=== PATIENT | male | born 1995 | race Caucasian/White ===

== ENCOUNTER 2020-05-03 01:38 | Emergency (ER) | payer BC, SELFPAY ==
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
[2020-05-03 01:43] VITALS: BP 137/77; PULSE 78; RESP 19; TEMP 36.6; O2SAT 100
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
[2020-05-03 03:29] VITALS: BP 122/78; PULSE 85; RESP 16; TEMP 36.7; O2SAT 100
== END 2020-05-03 03:30 | disposition home or self-care (01) ==
PROVIDERS: Emergency Provider General Practice
DX: S00.83XA Contusion of other part of head, initial encounter (principal); Y04.0XXA Assault by unarmed brawl or fight, initial encounter
CPT/HCPCS: 70486; 99284

== ENCOUNTER 2020-12-24 13:27 | Emergency (ER) | payer OTHER, BC, SELFPAY ==
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
--- NOTE | ~2020-12-24 | XR_ITS ---
EXAMINATION: XR hand LT min 3V INDICATION: Right hand pain, initial encounter TECHNIQUE: Three views of the right hand are obtained. COMPARISON: None FINDINGS: There is a 1 mm triangular radiopaque foreign body projecting in the soft tissues adjacent to the second metacarpophalangeal joint. There is surrounding soft tissue swelling. There is no fract ure, dislocation, or subluxation. The joint spaces are normal. IMPRESSION: 1. Tiny triangular radiopaque foreign body projecting in the soft tissues adjacent to the second meta carpophalangeal joint. No fracture. Reviewed, dictated and finalized at location A. IMPRESSION: 1. Tiny triangular radiopaque foreign body projecting in the soft tissues adjac ent to the second metacarpophalangeal joint. No fracture.
--- NOTE | ~2020-12-24 | XR_ITS ---
EXAMINATION: XR forearm LT 2V INDICATION: Left forearm pain TECHNIQUE: Two views of the left forearm are obtained on three radiographs COMPARISON: None available FINDINGS: There is a 4.8 x 2.0 cm triangular radiopaque foreign body in the soft tissues overlying th e proximal/mid ulnar shaft. Surrounding soft tissue swelling is present. There is no fracture, disloc ation, or subluxation. Alignment at the wrist and elbow is normal. IMPRESSION: 1. Radiopaque foreign body in the medial subcutaneous tissues adjacent to the proximal/mid ulnar shaf t. Reviewed, dictated and finalized at location A. IMPRESSION: 1. Radiopaque foreign body in the medial subcutaneous tissues adjacent to the p roximal/mid ulnar shaft.
[2020-12-24 13:28] VITALS: BP 136/57; PULSE 67; RESP 14; TEMP 37.1; O2SAT 100
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
== END 2020-12-24 15:32 | disposition home or self-care (01) ==
PROVIDERS: Emergency Provider Emergency Medicine
DX: S60.512A Abrasion of left hand, initial encounter (principal); S50.812A Abrasion of left forearm, initial encounter; S16.1XXA Strain of muscle, fascia and tendon at neck level, initial encounter; V89.2XXA Person injured in unspecified motor-vehicle accident, traffic, initial encounter
CPT/HCPCS: 72125; 73090; 73130; 99284

== ENCOUNTER 2020-12-25 16:51 | Emergency (ER) | payer OTHER, BC, SELFPAY ==
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
[2020-12-25 16:58] VITALS: BP 134/65; PULSE 76; RESP 18; TEMP 36.9; O2SAT 99
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
[2020-12-25 18:00] VITALS: BP 128/88; PULSE 70; RESP 20; O2SAT 100
== END 2020-12-25 18:04 | disposition home or self-care (01) ==
PROVIDERS: Emergency Provider Emergency Medicine
DX: S60.011A Contusion of right thumb without damage to nail, initial encounter (principal); V89.2XXA Person injured in unspecified motor-vehicle accident, traffic, initial encounter
CPT/HCPCS: 73130; 99283

== ENCOUNTER 2021-02-23 17:06 | Emergency (ER) | payer OTHER, BC, SELFPAY ==
[2021-02-23 17:17] VITALS: BP 138/62; PULSE 61; RESP 18; TEMP 36.8; O2SAT 100
[2021-02-23 17:46] VITALS: BP 138/62; PULSE 61; RESP 18; O2SAT 100
--- NOTE | 2021-02-23 18:26 | ED.DENTAL ---
HPI - Dental/Oral General Chief complaint: Dental/Oral Stated complaint: Toothache Time Seen by Provider: 02/23/21 17:50 Source: patient Mode of arrival: ambulatory Limitations: no limitations History of Present Illness HPI Narrative: This is 25 year old male who presents for evaluation of right upper tooth pain with cheek swelling. He reports pain for 2- 3 days to his took. He also reports left cheek swelling that started today. He denies fever, chills, nausea or vomiting. He has not taken anything for pain. He denies difficulty breathing. Related Data Allergies Allergy/AdvReac Type Severity Reaction Status Date / Time No Known Allergies Allergy Verified 12/25/20 17:07 Review of Systems Review of Systems: All systems reviewed & are unremarkable except as noted in HPI and below PMFSH Past Medical History Medical History Patient denies medical problems Surgical History Surgical History History of facial surgery Social History Social History Gender identity (if verbalized by the patient): Male Exam Const: General: no acute distress and alert Orientation/consciousness: patient oriented x3 HENMT: Head: normocephalic and atraumatic Mouth: Yes lip normal, Yes tongue normal, Yes moist mucous membranes and No trismus Teeth and gingiva: abnormal tooth and associated gingiva (# 14 with tenderness with gum and cheek swelling) Eyes: Pupils: Equal, round and reactive pupils present EOM: EOMs intact bilaterally Resp: Effort & Inspection: normal respiratory effort Auscultation: clear to auscultation bilaterally Cardio: Rate: regular rate Rhythm: regular rhythm Heart sounds: no murmurs Neuro: General: patient oriented x3, moves all extremities and CN's II-XI intact bilaterally Psych: Mental Status: mental status grossly normal Affect: normal affect Course Consultations Consultation #1: I discussed with patient he will be started on antibiotics for this dental abscess. I was able to aspirate purulent fluid. I discussed follow up with dentist or oral surgeon Date: 02/23/21 Time: 19:43 Vital Signs Vital signs: Vital Signs Temperature 98.3 F 02/23/21 17:17 Pulse Rate 61 02/23/21 17:17 Respiratory Rate 18 02/23/21 17:17 Blood Pressure 138/62 02/23/21 17:17 Pulse Oximetry 100 02/23/21 17:17 Temperature 98.3 F 02/23/21 17:17 Pulse Rate 78 02/23/21 20:29 Respiratory Rate 18 02/23/21 20:29 Blood Pressure 142/78 H 02/23/21 20:29 Pulse Oximetry 99 02/23/21 20:29 Procedures Abscess I/D oral: Date of Incision: 02/23/21 Time of Incision: 19:42 Side (if applicable): left Local Anesthetic: lidocaine 1% Amount of anesthesia used (mL): 1 Technique: needle aspiration Amount of fluid expressed (mL): 2 Packing used?: none I&D Results: Pus Abcess I&D Additional Comments: left upper dental abscess - I used 18 gauge needle to perform needle aspiration at gum at #14 Discharge Plan Discharge Clinical Impression: Dental abscess Patient Disposition: Home, Self-Care Condition: Stable Instructions: Antibiotic Form, Dental Abscess (ED) Additional Instructions: Today you were evaluated for dental abscess. Please take anti biotics as prescribed. Apply warm compress to your face to help with swelling and pain. If you develop worsening swelling, difficulty breathing fever or vomiting you will need to go to ER. You will need to follow up with dentist or oral surgeon. Prescriptions: New amoxicillin-pot clavulanate [Augmentin] 875-125 mg tablet 1 tablet PO Q12H Qty: 20 RF: 0 tramadol 50 mg tablet 50 mg PO Q6H PRN (Reason: pain) Qty: 7 RF: 0 No Action cephalexin 500 mg capsule 500 mg PO Q12H 7 Days Qty: 10 RF: 0 Follow-up/Ref
[2021-02-23] MEDS: HYDROcodone/acetaminophen (*CRX) 5-325 MG TABLET 1 TAB PO (19:17)
[2021-02-23] MEDS: ONDANSETRON HCL ODT 4 MG TABLET PO (19:20)
[2021-02-23 20:29] VITALS: BP 142/78; PULSE 78; RESP 18; O2SAT 99
== END 2021-02-23 20:30 | disposition home or self-care (01) ==
PROVIDERS: Emergency Provider General Practice
DX: K04.7 Periapical abscess without sinus (principal)
CPT/HCPCS: 41800; 99283; A9270

== ENCOUNTER 2023-06-02 14:50 | Emergency (ER) | payer SELFPAY ==
[2023-06-02 14:51] VITALS: BP 144/91; PULSE 91; RESP 18; TEMP 36.3; O2SAT 100
--- NOTE | 2023-06-02 15:19 | ED.DENTAL ---
HPI - Dental/Oral General Chief complaint: Dental/Oral Stated complaint: dental pain/swelling Time Seen by Provider: 06/02/23 14:57 Source: patient Mode of arrival: ambulatory Limitations: no limitations History of Present Illness HPI Narrative: Richie is a 27-year-old male patient presenting to the ER today for a possible dental abscess to the left upper tooth. He reports that he has no sys get increasingly swollen and painful over the past 2-3 days. Does start to take some old amoxicillin left over that his sister had. States his amoxicillin 875. Reports that this is not seem to be helping. Denies any fever or chills. Related Data Allergies Allergy/AdvReac Type Severity Reaction Status Date / Time No Known Allergies Allergy Verified 12/25/20 17:07 Review of Systems Review of Systems: Pertinent positives per HPI. Patient denies any fever, chills, rash, headache, visual changes, dizziness, cough, runny nose, sore throat, shortness of breath, chest pain, palpitations, nausea, vomiting, diarrhea, constipation, abdominal pain, or any urinary issues. PMFSH Past Medical History Medical History Patient denies medical problems Surgical History Surgical History History of facial surgery Social History Social History Gender identity (if verbalized by the patient): Male Comments At the time of my signature, I reviewed and agree with the nursing past medical, surgical, social, and family history. There is no relevant family history pertinent to the patient complaint. Exam Narrative: General: Well-developed, well nourished, in no apparent distress Head: Normocephalic, atraumatic Eyes: Pupils equally round and reactive to light bilaterally, EOM intact, sclera and conjunctive clear, no discharge, lids normal Ears: TMs intact and clear, ear canals clear, no drainage, grossly hearing normal. Nose: Nares patent, no discharge, no inflammation, no sinus tenderness. Mouth: Oropharynx without lesions or masses, poor dentition, MMM. Dental abscess to left upper canine tooth with fluctuance of abscess. Neck: Supple, trachea midline, no enlargement of anterior or posterior cervical nodes, no thyroid masses or goiter palpable. Cardio: Regular rate and rhythm, s1 and s2 normal, no murmur appreciated. Resp: Clear to auscultation bilaterally anteriorly and posteriorly, no rhonchi, rales, wheezing or rubs Course Course Emergency Course: Portions of this record may have been created with voice recognition software. Vital Signs Vital signs: Vital Signs Temperature 36.3 C L 06/02/23 14:51 Pulse Rate 91 06/02/23 14:51 Respiratory Rate 18 06/02/23 14:51 Blood Pressure 144/91 H 06/02/23 14:51 Pulse Oximetry 100 06/02/23 14:51 Oxygen Delivery Room Air 06/02/23 14:51 Temperature 36.3 C L 06/02/23 14:51 Pulse Rate 91 06/02/23 14:51 Respiratory Rate 18 06/02/23 14:51 Blood Pressure 144/91 H 06/02/23 14:51 Pulse Oximetry 100 06/02/23 14:51 Oxygen Delivery Room Air 06/02/23 14:51 Vital signs reviewed Procedures Abscess I/D oral: Date of Incision: 06/02/23 Side (if applicable): left Local Anesthetic: lidocaine 1% and with epi Amount of anesthesia used (mL): 1 Technique: needle aspiration Amount of fluid expressed (mL): 3 Irrigation: No Packing used?: none I&D Results: Pus and Blood Complications: other (None) Abcess I&D Additional Comments: Verbal consent obtained for needle aspiration of dental abscess. Risk and benefits explained and patient voiced understanding. A 25 gauge needle was then used to instill (1) ml of lidocaine with epi into the abscess. Patient tolerated well and anesthesia was appropriate. An 18 gauge needle was then u
[2023-06-02] MEDS: cefTRIAXone 1 GM, LIDOCAINE HCL 1% LOCAL INJ 2.1 ML IM (15:46)
[2023-06-02] MEDS: WATER, STERILE FOR INJECTION 10 ML VIAL XX (15:47)
[2023-06-02] MEDS: LIDO 1%/EPINEPHRINE 1:100,000 20 ML VIAL 10 ML INFILTRATE (15:47)
[2023-06-02] MEDS: HYDROcodone/acetaminophen (*CRX) 7.5-325 MG TABLET 1 TAB PO (15:48)
== END 2023-06-02 15:53 | disposition home or self-care (01) ==
PROVIDERS: Emergency Provider Nurse Practitioner Family
DX: K04.7 Periapical abscess without sinus (principal)
CPT/HCPCS: 41800; 96372; 99283; A9270; J0696

== ENCOUNTER 2023-07-31 11:20 | Emergency (ER) | payer MEDICAID, SELFPAY ==
--- NOTE | ~2023-07-31 | CT_ITS ---
EXAMINATION: CT abdomen pelvis w con DATE: 07/31/2023 14:01 INDICATION: Gross hematuria. Right lower quadrant abdominal pain and suprapubic pain. TECHNIQUE: Computed tomography (CT) of the abdomen and pelvis was performed with 100 mL Omnipaque-350 intravenous contrast. Automated exposure control and iterative reconstruction technique were employe d. The dose-length product was 708.48 mGy-cm. COMPARISON: None FINDINGS: There is some curvilinear atelectasis/scarring at the periphery of a focal region of hyperlucency lennox g disease at the posterior basilar right lower lobe which could be due to bronchial atresia, sequela of prior infection or emphysema. Heart size is normal. No pericardial or pleural effusion. Liver, gal lbladder, spleen, pancreas, bilateral adrenal glands and kidneys are normal. Bowels are normal. There few small calcified appendicoliths along the normal appendix with no periappendiceal inflammatory st randing to suggest acute appendicitis. Bilateral ureters are normal with no urolithiasis. Bladder is normal. No free intraperitoneal gas or fluid. No pathologically enlarged abdominal or pelvic lymphade nopathy. Mild to moderate lower thoracic spondylosis with minimal to mild anterior wedging and multip le small Schmorl's nodes at multiple lower thoracic vertebral bodies. IMPRESSION: 1. No evident urolithiasis or acute intra-abdominal/pelvic process. 2. Small region of lucent lung disease at the posterior basilar right lower lobe most likely related to either developmental bronchial atresia or more recent sequela of prior infection. Reviewed, dictated and finalized at location A. NTORY CHECKER IMPRESSION: 1. No evident urolithiasis or acute intra-abdominal/pelvic process. 2. Small region of lucent lung disease at the posterior basilar right lower lob e most likely related to either developmental bronchial atresia or more recent sequela of prior infection.
[2023-07-31 11:21] VITALS: BP 144/80; PULSE 95; RESP 16; TEMP 36.4; O2SAT 98
[2023-07-31 11:56] LABS: Appearance Urine Turbid (Clear); Color Urine Red (Yellow)
[2023-07-31 11:57] LABS: Add Urine Microscopic? YES; RBC Urine >100 /hpf (0-2); WBC Urine >100 /hpf
[2023-07-31 11:58] LABS: Bacteria Urine 2+ /hpf
[2023-07-31 12:10] LABS: Basophils Percent Auto 0.5 % (0.2-1.2); Eosinophils Absolute Auto 0.2 K/mm3 (0-0.3); Eosinophils Percent Auto 2.5 % (0-4.4); Hematocrit 47.5 % (42.0-52.0); Hemoglobin 14.8 g/dL (14.0-18.0); Immature Granulocyte Absolute 0.05 K/mm3 (0.00-0.031); Immature Granulocyte Percent A 0.6 % (0-0.5); Lymphocytes Absolute Auto 2.52 K/mm3 (0.9-3.2); Lymphocytes Percent Auto 28.7 % (18.3-44.2); Mean Corpuscular HGB Conc 31.2 g/dl (32-36); Mean Corpuscular Volume 96.3 fl (80-100); Mean Platelet Volume 8.7 fl (7.4-10.4); Monocytes Absolute Auto 0.9 K/mm3 (0.1-0.6); Monocytes Percent Auto 10.6 % (2.6-8.5); Neutrophils Percent Auto 57.1 % (45.5-73.1); Platelet Count Result 292 k/mm3 (150-375); Red Blood Count 4.93 M/mm3 (4.6-6.20); Red Cell Distribution Width 13.1 % (11.5-14.5); White Blood Count 8.8 K/mm3 (4.5-10.0)
[2023-07-31 12:22] LABS: Anion Gap 6 mmol/L (8-16); Blood Urea Nitrogen 22 mg/dL (9-20); Calcium 9.4 mg/dL (8.4-10.2); Carbon Dioxide 28 mmol/L (22-30); Chloride 103 mmol/L (98-107); Estimated CRCL calculation 151 ml/min; Estimated Glomerular Filt Rate > 60; Glucose 97 mg/dL (65-110); Potassium 4.5 mmol/L (3.4-5.0); Sodium 137 mmol/L (137-145)
--- NOTE | 2023-07-31 13:35 | ED.MALEGU ---
HPI - Male Genitourinary General Chief complaint: Urogenital-Male Stated complaint: peeing blood Time Seen by Provider: 07/31/23 12:04 History of Present Illness HPI Narrative: Patient is a 28-year-old male presenting with hematuria. Patient states that he woke up this morning and had gross hematuria. States that there were a lot of clots. Complains of a bloating painful sensation in his right lower quadrant and suprapubic area. No nausea or vomiting, diarrhea, penile discharge, testicular pain. No fevers or chills, rashes. Related Data Allergies Allergy/AdvReac Type Severity Reaction Status Date / Time No Known Allergies Allergy Verified 07/31/23 11:23 Review of Systems Review of Systems: All systems reviewed & are unremarkable except as noted in HPI and below PMFSH Past Medical History Medical History Patient denies medical problems Surgical History Surgical History History of facial surgery Social History Social History Gender identity (if verbalized by the patient): Male Exam Narrative: GENERAL: Well-appearing, in no acute distress, pleasant cooperative HEAD: Normocephalic, atraumatic. EYES: PERRLA and EOMI. ENT: Mucous membranes moist. NECK: Supple. CHEST: No respiratory distress. HEART: Regular rate and rhythm ABDOMEN: Soft, +suprapubic and RLQ tenderness w/o guarding or rebound; no CVA tenderness EXTREMITIES: Normal range of motion. No edema. SKIN: Warm, dry, no rash. NEURO: No focal deficits. Alert and oriented x3. PSYCH: Normal mood and affect. Course Vital Signs Vital signs: Vital Signs Temperature 97.6 F 07/31/23 11:21 Pulse Rate 95 07/31/23 11:21 Respiratory Rate 16 07/31/23 11:21 Blood Pressure 144/80 H 07/31/23 11:21 Pulse Oximetry 98 07/31/23 11:21 Oxygen Delivery Room Air 07/31/23 11:21 Temperature 98.4 F 07/31/23 16:02 Pulse Rate 73 07/31/23 16:02 Respiratory Rate 18 07/31/23 16:02 Blood Pressure 148/90 H 07/31/23 16:02 Pulse Oximetry 100 07/31/23 16:02 Oxygen Delivery Room Air 07/31/23 11:21 MDM - Male Genitourinary MDM Narrative Medical decision making narrative: 28-year-old male presenting with gross hematuria and lower abdominal pain. Vitals stable. Exam remarkable for the above. Urine is grossly bloody. Greater than 100 rbc's and wbc's with 2+ bacteria. Due to the turbidity and color, many aspects of the UA were unable to be performed. CT abdomen pelvis without acute abnormalities. Repeat UA with greater than 100 rbc's but no other acute abnormalities. Negative for chlamydia and gonorrhea. Patient is safe for outpatient management. Advised close Urology follow-up. Appropriate return precautions given. Patient is agreeable with this plan. Discharged in stable condition. Differential Diagnosis Differential diagnosis: Likely urinary tract infection, urethritis, prostatitis and other (Hematuria) Medical Records Attestation: I reviewed the patient's medical records. Lab Data Attestation: I reviewed the patient's lab results. 07/31/23 11:59 07/31/23 11:59 Labs: Lab Results 07/31/23 07/31/23 07/31/23 Range/Units 11:46 11:59 15:51 WBC 8.8 (4.5-10.0) K/mm3 RBC 4.93 (4.6-6.20) M/mm3 Hgb 14.8 (14.0-18.0) g/dL Hct 47.5 (42.0-52.0) % MCV 96.3 (80-100) fl MCH 30.0 (26-34) pg MCHC 31.2 L (32-36) g/dl RDW 13.1 (11.5-14.5) % Plt Count 292 (150-375) k/mm3 MPV 8.7 (7.4-10.4) fl Immature Gran % (Auto) 0.6 H (0-0.5) % Neut % (Auto) 57.1 (45.5-73.1) % Lymph % (Auto) 28.7 (18.3-44.2) % [place] % (Auto) 10.6 H (2.6-8.5) % Eos % (Auto) 2.5 (0-4.4) % Baso % (Auto) 0.5 (0.2-1.2) % Lymph # (Auto) 2.52 (0.9-3.2) K/mm3 [place] # (Auto) 0.9 H (0
[2023-07-31] MEDS: MORPHINE SULFATE (*CRX) 4 MG/ML INJ IV PUSH (13:47)
[2023-07-31] MEDS: SODIUM CHLORIDE 0.9% IV 1,000 ML 999 ML IV CONT ×2 (13:47→14:49)
[2023-07-31 14:02] LABS: Lipase 83 U/L (23-300)
[2023-07-31 14:14] LABS: INR 0.8; Prothrombin Time 11.9 Seconds (11.1-14.7)
[2023-07-31 14:15] LABS: Partial Thromboplastin Time 29.5 SECONDS (22.3-36.8)
[2023-07-31 16:02] VITALS: BP 148/90; PULSE 73; RESP 18; TEMP 36.9; O2SAT 100
[2023-07-31 16:06] LABS: Bacteria Urine None Seen /hpf; Non Pathogenic Casts 0-2; RBC Urine >100 /hpf (0-2); Squamous Epithelial Cell Urine None seen /hpf (Few); WBC Urine 0-5 /hpf (0-3)
[2023-07-31 16:22] LABS: Appearance Urine Slightly Cloudy (Clear); Color Urine Amber (Yellow)
[2023-07-31 16:23] LABS: Protein Urine Negative (Negative); Specific Grav Ur 1.015 (1.001-1.035)
[2023-07-31 16:24] LABS: Blood Urine 3+ (Negative); Glucose Urine UA Negative (Negative); Ketones Urine Negative (Negative); Nitrate Urine Negative (Negative)
[2023-07-31 16:25] LABS: Bilirubin Urine Negative (Negative); Leukocyte Esterase Ur Negative LEU/UL (NEGATIVE); Urobilinogen Urine 0.2 mg/dL (<2.0)
[2023-07-31 16:26] LABS: Add Urine Microscopic? YES
[2023-07-31] MEDS: NICOTINE (*PBKC) 21 MG PATCH 1 PATCH TRANSDERM (16:42)
[2023-07-31 16:46] LABS: Chlamydia trachomatis NOT DETECTED (NOT DETECTE); Neisseria gonorrhoeae PCR NOT DETECTED (NOT DETECTE)
== END 2023-07-31 17:55 | disposition home or self-care (01) ==
PROVIDERS: Physician Assistant; Student in an Organized Health Care Education/Training Program; Emergency Provider Emergency Medicine
DX: R31.0 Gross hematuria (principal)
CPT/HCPCS: 36415; 74177; 80048; 81001; 83690; 85025; 85610; 85730; 87086; 87491; 87591; 96361; 96374; 99284; A9270; J2270; J7030; Q9967

== ENCOUNTER 2024-01-11 14:28 | Emergency (ER) | payer OTHER, SELFPAY ==
[2024-01-11 14:31] VITALS: BP 134/80; PULSE 96; RESP 20; TEMP 36.6; O2SAT 99
--- NOTE | 2024-01-11 15:25 | PC.NURSE ---
Ambulatory to ed with c/o increasing pain to his leg and difficulty walking. Pt walks out of dept with steady gait cursing at staff.
== END 2024-01-11 15:34 | disposition left against medical advice (07) ==
LOC: ANHED 15:33
DX: S81.852A Open bite, left lower leg, initial encounter (principal); W55.01XA Bitten by cat, initial encounter
CPT/HCPCS: 99199

== ENCOUNTER 2024-01-12 21:13 | Emergency (ER) | payer OTHER, SELFPAY ==
--- NOTE | ~2024-01-12 | XR_ITS ---
EXAMINATION: XR tibia fibula LT 2V DATE: 01/12/2024 22:44 INDICATION: R with diffuse swelling to the left lower leg. TECHNIQUE: Anteroposterior and lateral views of the left tibia and fibula were obtained. COMPARISON: None. FINDINGS: Alignment is normal. No fracture. Joint spaces are normal. There is soft tissue swelling predominantl y along the medial side of the distal lower leg and ankle. No soft tissue gas or radiopaque foreign b [place]. No evident ankle joint effusion. IMPRESSION: 1. Soft tissue swelling. No soft tissue gas or osseous abnormality. Reviewed, dictated and finalized at location A.
[2024-01-12 21:24] VITALS: BP 140/86; PULSE 100; RESP 18; TEMP 36.6; O2SAT 100
--- NOTE | 2024-01-12 21:39 | ECG_ITS ---
Test Date: 2024-01-12 22:18:29 Measurements Intervals [place] Rate: 92 P: 53 IN: 159 QRS: 35 QRSD: 101 T: 54 QT: 329 QTc: 409 Interpretive Statements SINUS RHYTHM BASELINE ARTIFACT- I, II, III, AVR NORMAL ECG No previous ECG available for comparison Electronically Signed On 01-13-2024 06:25:42 CDT by Butch Cross D.O.
--- NOTE | 2024-01-12 21:46 | ED.GENADULT ---
HPI - General Adult General Chief complaint: Animal Bite Stated complaint: cat bite Time Seen by Provider: 01/12/24 21:39 History of Present Illness HPI narrative: This is a 28 yo male presenting with a cat bite. Patient was throwing some pain into his garbage when he he was attacked 5 difficult if it bit him in the left calf. Since then he has now developed redness and swelling of his left calf. No systemic signs of illness. Related Data Allergies Allergy/AdvReac Type Severity Reaction Status Date / Time No Known Allergies Allergy Verified 01/12/24 21:13 [facility] Past Medical History Medical History Patient denies medical problems Surgical History Surgical History History of facial surgery Social History Social History Gender identity (if verbalized by the patient): Male Exam Narrative: APPEARANCE: No apparent distress. Head: atraumatic. EYES: EOMI, NOSE: Atraumatic NECK: Trachea midline RESPIRATORY: No increased rate of breathing CARDIOVASCULAR: RRR, ABDOMINAL: Non-distended MUSCULOSKELETAl: No obvious deformities NEURO: Alert. Moving 4/4 extremities SKIN:: Cellulitic changes from the patient's heel up to the back of his knee and around the calf. No areas of fluctuance. Neurovascular intact. PSYCHIATRIC: Normal affect Course Vital Signs Vital signs: Vital Signs Temperature 97.9 F 01/12/24 21:24 Pulse Rate 100 01/12/24 21:24 Respiratory Rate 18 01/12/24 21:24 Blood Pressure 140/86 01/12/24 21:24 Pulse Oximetry 100 01/12/24 21:24 Oxygen Delivery Room Air 01/12/24 21:24 Temperature 97.9 F 01/12/24 21:24 Pulse Rate 90 01/12/24 23:45 Respiratory Rate 17 01/12/24 23:45 Blood Pressure 126/67 01/12/24 23:45 Pulse Oximetry 100 01/12/24 23:45 Oxygen Delivery Room Air 01/12/24 21:24 Medical Decision Making [facility] Narrative Medical decision making narrative: -Course: 28-year-old male presenting with cellulitic changes after a feral cat bite. Patient started on Unasyn and given fluid resuscitation. Given rabies vaccine and antibodies injected around the site of the wound. White count 17. I recommended admission. The patient declined. He said he will take his chances. Patient given oral antibiotics. Patient strongly encouraged to return emergency department. The risks of leaving including loss of life and limb were made very clear to the patient his voices understanding. The patient does not want to stay in hospital because his girlfriend cannot stay with him. Patient left AMA. Patient was provided RX for antibiotics. Hopefully the p.o. antibiotics will be effective. -DDX includes but is not limited to: Cat bite, cellulitic changes, abscess -Independent interpretation of studies: White count 17. Lactic .9. Minor elevations in liver enzymes. Tib/Fib X-ray negative Independent EKG interpretation: Rhythm [sinus], Rate [92], [place] -[normal], [place] -[normal], QRS [narrow], QTC [normal], T waves -[negative for concerning inversions], ST Segments - [Negative for concerning elevations] Final interpretations: [Normal Sinus Rhythm] -Interventions:Unasyn, 3L NS. -Shared decision making / Disposition: AMA Vital Signs Vital Signs: Vital Signs Temperature 97.9 F 01/12/24 21:24 Pulse Rate 100 01/12/24 21:24 Respiratory Rate 18 01/12/24 21:24 Blood Pressure 140/86 01/12/24 21:24 Pulse Oximetry 100 01/12/24 21:24 Oxygen Delivery Room Air 01/12/24 21:24 Temperature 97.9 F 01/12/24 21:24 Pulse Rate 90 01/12/24 23:45 Respiratory Rate 17 01/12/24 23:45 Blood Pressure 126/67 01/12/24 23:45 Pulse Oximetry 100 01/12/24 23:45 Oxygen Delivery Room Air 01/12/24 21:24 Lab Data 01/12/24 21:58 01/12/24 21:58 Labs: Lab
[2024-01-12] MEDS: SODIUM CHLORIDE 0.9% IV 3,000 ML 999 ML IV CONT (22:00)
[2024-01-12 22:02] LABS: Glucose Point of Care 121 mg/dl (65-105)
[2024-01-12 22:05] LABS: Basophils Percent Auto 0.2 % (0.2-1.2); Eosinophils Percent Auto 0.2 % (0-4.4); Hematocrit 39.8 % (42.0-52.0); Hemoglobin 13.4 g/dL (14.0-18.0); Immature Granulocyte Absolute 0.06 K/mm3 (0.00-0.031); Immature Granulocyte Percent A 0.4 % (0-0.5); Lymphocytes Percent Auto 9.9 % (18.3-44.2); Mean Corpuscular HGB Conc 33.7 g/dl (32-36); Mean Corpuscular Hemoglobin 31.8 pg (26-34); Mean Corpuscular Volume 94.5 fl (80-100); Mean Platelet Volume 8.7 fl (7.4-10.4); Monocytes Absolute Auto 1.4 K/mm3 (0.1-0.6); Monocytes Percent Auto 8.4 % (2.6-8.5); Neutrophils Absolute Auto 13.8 K/mm3 (1.3-6.7); Neutrophils Percent Auto 80.9 % (45.5-73.1); Platelet Count Result 248 k/mm3 (150-375); Red Blood Count 4.21 M/mm3 (4.6-6.20); Red Cell Distribution Width 12.2 % (11.5-14.5); White Blood Count 17.1 K/mm3 (4.5-10.0)
[2024-01-12 22:12] LABS: Lactic Acid Reflex 0.9 mmol/L (0.7-2.0)
[2024-01-12 22:14] LABS: Alanine Aminotransferase 123 U/L (6-50); Albumin Level 4.4 g/dL (3.5-5.1); Alkaline Phosphatase 177 U/L (38-126); Anion Gap 9 mmol/L (4-12); Aspartate Amino Transferase 99 U/L (17-59); Bilirubin,Total 0.5 mg/dL (0.2-1.3); Blood Urea Nitrogen 6 mg/dL (9-20); Carbon Dioxide 28 mmol/L (22-30); Chloride 98 mmol/L (98-107); Estimated CRCL calculation 164 ml/min; Estimated Glomerular Filt Rate > 60; Glucose 117 mg/dL (65-110); Magnesium 1.9 mg/dL (1.6-2.3); Phosphorus 3.6 mg/dL (2.5-4.5); Potassium 3.8 mmol/L (3.4-5.0); Sodium 135 mmol/L (137-145)
[2024-01-12] MEDS: KETOROLAC 15 MG/ML VIAL (*BKC) IV PUSH (22:34)
[2024-01-12] MEDS: AMPICILLIN SULB 3 GM/NS 100 ML 3 GM/100 ML VIAL IVPB (22:34)
[2024-01-12] MEDS: TETANUS,DIPHTHERIA,AC PERTUSSIS ADULT (0.5 ML) BOOSTRIX IM (22:34)
[2024-01-12 22:44] VITALS: BP 155/54; PULSE 84; RESP 18; O2SAT 100
[2024-01-12] MEDS: RABIES VACCINE (RABAVERT) 2.5 UNITS VIAL IM (23:18)
[2024-01-12 23:25] LABS: Appearance Urine Cloudy (Clear); Bacteria Urine None Seen /hpf; Bilirubin Urine Negative (Negative); Blood Urine Negative (Negative); Color Urine Yellow (Yellow); Glucose Urine UA Negative (Negative); Ketones Urine Negative (Negative); Leukocyte Esterase Ur 1+ LEU/UL (Negative); Need Manual Microscopic Reviewed; Nitrate Urine Negative (Negative); Non Pathogenic Casts >20; Protein Urine 1+ mg/dL (Negative); RBC Urine 0-2 /hpf (0-2); Specific Grav Ur 1.013 (1.001-1.035); Squamous Epithelial Cell Urine Occasional /hpf (Few); pH Urine 6.5 (5.0-9.0)
[2024-01-12 23:29] LABS: Add Urine Microscopic? YES
[2024-01-12 23:45] VITALS: BP 126/67; PULSE 90; RESP 17; O2SAT 100
== END 2024-01-13 01:03 | disposition left against medical advice (07) ==
PROVIDERS: Emergency Provider Emergency Medicine
DX: S81.852A Open bite, left lower leg, initial encounter (principal); Z23 Encounter for immunization; W55.01XA Bitten by cat, initial encounter
CPT/HCPCS: 36415; 73590; 80053; 81001; 82948; 83605; 83735; 84100; 85025; 87040; 87086; 90471; 90472; 90675; 90715; 93005; 96361; 96365; 96375; 99284; J0295; J1885; J7030

== ENCOUNTER 2024-11-03 18:50 | Emergency (ER) | payer OTHER, SELFPAY ==
[2024-11-03 18:51] VITALS: BP 139/56; PULSE 66; RESP 16; TEMP 36.2; O2SAT 100
--- OUTSIDE RECORDS SUMMARY | 2024-11-03 18:52 | XMS_ITS | Encounter Summary ---
Author Organization [facility] Address [address] [place] [address] Care Team Providers Care Glassworker Name Role Phone Unavailable Primary Care Provider Unavailabl e Encounter Details Date Type Department Care Team (Late st Contact Info) Description 10/20/2019 Ophth Exam [facility] [address] [place] [address] Alexa Ragsdale MD [address] [facility] [address] DEPT OF OPHTHALMOLOGY [place], [place] Social History Tobacco Use Types Packs/Day Years Used Date Smoking Tobacco: Never Assessed Sex and Gender Information Value Date Recorded Sex Assigned at Not on file Legal Sex Male 8:17 PM CDT Gender Identity Not on file Sexual Orientation Not on file documented as of this encounter Plan of Treatment Not on file documented as of this encounter Visit Diagnoses Not on filedocumented in this encounter Additional Health Concerns Infection Onset Date Last Indicated Resolved Time COVID-19 Under Investigation 10/20/2019 10/20/2019 10/20/2019 9:57 AM CDT documented as of this encounter
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
--- OUTSIDE RECORDS SUMMARY | 2024-11-03 18:52 | XMS_ITS | Clinical Summary ---
Author Organization [facility] Address [facility] [place] [address] Care Team Providers Care Parquet Floor Layer'S Helper Name Role Phone Unavailable Primary Care Provider Unavailabl e Social History Tobacco Use Types Packs/Day Years Used Date Smoking Tobacco: Never Assessed Sex and Gender Information Value Date Recorded Sex Assigned at Not on file Legal Sex Male 7:24 PM CDT Gender Identity Not on file Sexual Orientation Not on file Plan of Treatment Health Maintenance Due Date Last Done Comments Annual Physical 2000 Hepatitis C 2015 DTaP, Tdap and Td Vaccines ( 1 - Tdap) 2016 Hepatitis B Vaccines (1 of 3 - 19+ 3-dose series) 2016 COVID-19 Vaccine (2023-2 5 season) 2024 HPV Vaccines Aged Out No longer eligi ble based on patient's age to complete this topic Meningococcal B Vaccine Aged Out No l onger eligible based on patient's age to complete this topic Meningococcal Vaccine Aged Out No denise maynor eligible based on patient's age to complete this topic Pneumococcal Vaccine: Pediat rics (0 to 5 Years) and At-Risk Patients (6 to 49 Years) Aged Out No longer eligible b ased on patient's age to complete this topic RSV Immunizations Under 20 Months Aged Out No longer eligible based on patient's age to complete this topic
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
[2024-11-03 19:26] VITALS: BP 130/58; PULSE 70; RESP 18; O2SAT 100
--- OUTSIDE RECORDS SUMMARY | 2024-11-03 20:06 | XMS_ITS | Encounter Summary ---
Author Organization [facility] Address [address] [place] [address] Care Team Providers Care Slicer Machine Operator Name Role Phone Unavailable Primary Care Provider Unavailabl e Encounter Details Date Type Department Care Team (Late st Contact Info) Description 10/20/2019 Ophth Exam [facility] [address] [place] [address] Alexa Ragsdale MD [address] [facility] 2L DEPT OF OPHTHALMOLOGY [place], [place] Social History Tobacco Use Types Packs/Day [...]
--- OUTSIDE RECORDS SUMMARY | 2024-11-03 20:06 | XMS_ITS | Clinical Summary ---
Author Organization [facility] Address [address] [place] [address] Care Team Providers Care Machine Repairman Name Role Phone Unavailable Primary Care Provider [...]
--- OUTSIDE RECORDS SUMMARY | 2024-11-03 20:06 | XMS_ITS | Clinical Summary ---
Author Organization [facility] Address [facility] [place] [address] Care Team Providers Care Lockstitch Back Maker Name Role Phone Unavailable Primary Care Provider [...]
--- OUTSIDE RECORDS SUMMARY | 2024-11-03 20:06 | XMS_ITS | Clinical Summary ---
Author Organization [facility] Address [address] [place] [address] Care Team Providers Care Manager Audio Name Role Phone Unavailable Primary Care Provider Unavailabl e Source Comments [facility],non-owned Affiliates and Associated Physician Practices is amultiple site organization consisting of ambulatory clinics and hospital sitesin [place], [place], [place] and [place]. This disclosure is being madepursuant to the Care Everywhere program and may not contain all information available regarding this patient. Last updated 18.[facility] [employer] Allergies No known active allergies Medications * [...] this topic Medical Devices Implanted Type Area Administration Vice President Device Identifier Shelf Expiration Date Model / Serial / Lot Screw 1.55mm 2.65mm 4mm Slf Drmaricarmen Aguilera Implanted:Qty: 11 on 10/21/2019 by Jose De Leon MD at [facility] Left: Face Synthes Maxillofacial .22 4.01 / / 1.5mm 2x2 Hole Plate Implanted:Qty: 1 on 10/21/2019 by Jose De Leon MD at [facility] Left: Mandible Synthes Maxillofacial .72 3 / / Screw 2mm 8mm Slf Drl Mndb Ss Nonster Implanted:Qty: 6 on 10/21/2019 by Jose De Leon MD at [facility] Left: Mandible Synthes Maxillofacial 201.928E / / Screw 1.55mm 2.65mm 5mm Slf Renu Aguilera Implanted:Qty: 4 on 10/21/2019 by Jose De Leon MD at [facility] Left: Face Synthes Maxillofacial .22 5.01 / / 30 Mm Rapid Resorb Orbital Floor Plate Implanted:Qty: 1 on 10/21/2019 by Jose De Leon MD at [facility] Left: Face Synthes Maxillofacial 851.690.0 1S / / Plate 12 Hl Mdfc .5mm Std Mini Implanted:Qty: 1 on 10/21/2019 by Jose De Leon MD at [facility] Left: Face Synthes Maxillofacial 503.34 3 / / Plate 3x4 Hl Mdfc .8mm Std Lg L Ob L Implanted:Qty: 1 on 10/21/2019 by Jose De Leon MD at [facility] Left: Face Synthes Maxillofacial 503.38 5 / / Screw 2mm 10mm Slf-Tap Lck Mndb Implanted:Qty: 2 on 10/21/2019 by Jose De Leon MD at [facility] Left: Mandible Synthes Maxillofacial 503.61 0.01 / / Screw 2mm 12mm Slf-Tap Lck Mndb Implanted:Qty: 2 on 10/21/2019 by Jose De Leon MD at [facility] Left: Mandible Synthes Maxillofacial 61 2.01 / / Screw 2mm 6mm Slf Drl Mndb Implanted:Qty: 4 on 10/21/2019 by Jose De Leon MD at [facility] Left: Mandible Synthes Usa 50 6.01 / / Plate 2x2 Hl Tnsnbnd Mlbl Mndb 1mm Mini Implanted:Qty: 1 on 10/21/2019 by Jose De Leon MD at [facility] Left: Mandible Synthes Maxillofacial 75 0 / / Insurance MEDICAID - [facility] MEDICAID - [place] MEDICAID - OUT [facility] MEDICAID - OUT OF STATE MEDICAID - OUT OF STATE MEDICAID - OUT OF STATE MEDICAID - OUT OF STATE Member Subscriber Plan / Payer (Ef fective for All Dates) Name:Janna Mckenzie Relation to Subscriber:Self Name:JANNA MCKENZIE Payer ID:Not on file Group ID:Not on file Type:Medicaid Address: [place] [id number] MEDICAID - OUT OF STATE MEDICAID - OUT OF STATE MEDICAID - OUT OF [facility] MEDICAID - OUT OF [facility] MEDICAID - OUT OF STATE MEDICAID - [...]
--- NOTE | 2024-11-03 20:54 | ED_ITS ---
HPI - Dental/Oral General Chief complaint: Skin/Abscess/Foreign Body Stated complaint: jaw pain Time Seen by Provider: 11/03/24 19:37 Source: patient Mode of arrival: ambulatory Limitations: no limitations History of Present Illness HPI Narrative: Patient is a 29 y/o male who presents to the ED with c/o L upper dental pain. Patient reports he has a cracked tooth along his left upper molar, tooth 15. He cracked this tooth while eating a few weeks ago. He has had increasing pain and swelling throughout his left upper dental region/left facial cheek over the past couple of days. Has not taken anything for pain. Reports today he began having some drainage and a bad taste in his mouth. Denies fevers, difficulty breathing or swelling. Does not currently see a dentist. Related Data Allergies Allergy/AdvReac Type Severity Reaction Status Date / Time No Known Allergies Allergy Verified 11/03/24 18:51 Review of Systems Review of Systems: All systems reviewed & are unremarkable except as noted in HPI. All systems reviewed & are unremarkable except as noted in HPI and below PMFSH Past Medical History Medical History Patient denies medical problems Surgical History Surgical History History of facial surgery Social History Social History Gender identity (if verbalized by the patient): Male Exam Narrative: GENERAL: Well appearing, obese with BMI of 32.2, non-toxic, in no acute distress. HEAD: Normocephalic, atraumatic. ENT: Cracked tooth #15, left upper molar, cracked almost down to root. Mild erythema and inflammation of L upper gumline with focal TTP. Small periapical abscess along gumline above tooth 15 which is actively draining dark purulence material. Maintaining secretions. No stridor or trismus. RESPIRATORY: Airway patent, respirations nonlabored. CARDIOVASCULAR: Regular rate and rhythm MUSCULOSKELETAL: Moves all extremities. No gross deformities. SKIN: Warm, dry, normal color. NEURO: A&O X3. Speech clear. PSYCHIATRIC: Appropriate mood and affect. Normal interaction. Course Vital Signs Vital signs: Vital Signs Temperature 97.1 F L 05/13/25 18:51 Pulse Rate 66 11/03/24 18:51 Respiratory Rate 16 11/03/24 18:51 Blood Pressure 139/56 L 11/03/24 18:51 Pulse Oximetry 100 11/03/24 18:51 Oxygen Delivery Room Air 11/03/24 18:51 Temperature 97.1 F L 11/03/24 18:51 Pulse Rate 70 11/03/24 19:26 Respiratory Rate 18 11/03/24 19:26 Blood Pressure 130/58 L 11/03/24 19:26 Pulse Oximetry 100 11/03/24 19:26 Oxygen Delivery Room Air 11/03/24 18:51 MDM - Dental/Oral MDM Narrative Medical decision making narrative: Patient's pain is consistent with dental abscess/dental infection. Abscess is spontaneously draining. I was able to express further purulent material with gentle palpation. No indication for I&D. Patient will be started on Augmentin and chlorhexidine mouthwash. Given 1st dose in the ED. Patient is controlling secretions well without signs of airway compromise. Patient is felt reasonable for outpatient follow-up with dental evaluation. Advised to follow-up with dentist for further evaluation. Given return precautions. Discharged in stable condition. Medical Records Attestation: I reviewed the patient's medical records. Discharge Plan Discharge Clinical Impression: Dental abscess, Toothache Patient Disposition: Home Condition: Stable Instructions: Antibiotic Form, Dental Abscess (ED), Toothache (ED) Additional Instructions: Take antibiotics as prescribed for dental infection. Utilize mouthwash twice a day daily as needed. Continue Tylenol and ibuprofen as needed for pain. Stay well hydrated. Follow-up with dentist for further evaluation. Return to the ED for difficulty breathing or swelling, unable to keep down food or drink, persistent fevers, or any other symptoms of concern. Patient Language: Polish Prescriptions: New amoxicillin-pot clavulanate 875-125 mg tablet 1 tablet PO Q12H 7 Days Qty: 14 0RF chlorhexidine gluconate 0.12 % mouthwash 15 ml buccal BID PRN (Reason: dental infection) Qty: 15 0RF No Action cephalexin 500 mg capsule 500 mg PO Q12H 7 Days Qty: 10 0RF amoxicillin-pot clavulanate [Augmentin] 875-125 mg tablet 1 tablet PO Q12H Qty: 20 0RF tramadol 50 mg tablet 50 mg PO Q6H PRN (Reason: pain) Qty: 7 0RF amoxicillin-pot clavulanate 875-125 mg tablet 1 tablet PO Q12H Qty: 20 0RF Imovax Rabies Vaccine (PF) 2.5 unit recon soln 1 ml IM ONCE Qty: 3 0RF Rx Instructions: Doses on Day 3 (01/15), Day 7 (01/19), Day 14 (01/26) amoxicillin-pot clavulanate 875-125 mg tablet 1 tablet PO Q12H 10 Days Qty: 20 0RF ibuprofen 800 mg tablet 800 mg PO TID PRN (Reason: pain) 10 Days Qty: 30 0RF Follow-up/Referrals: PHYSICIAN,HUMAN RESOURCES RECEPTIONIST [Primary Care Provider] - Time of Disposition: 21:00
[2024-11-03] MEDS: AMOXICILLIN/CLAVULANATE K 875-125 MG TAB 1 TABLET PO (21:29)
== END 2024-11-03 21:37 | disposition home or self-care (01) ==
PROVIDERS: Emergency Provider Physician Assistant
DX: K04.7 Periapical abscess without sinus (principal)
CPT/HCPCS: 99283; A9270

== ENCOUNTER 2025-03-20 05:05 | Emergency (ER) | payer SELFPAY ==
[2025-03-20 05:09] VITALS: BP 148/88; PULSE 82; RESP 16; TEMP 36.8; O2SAT 99
--- NOTE | 2025-03-20 05:16 | ED_ITS ---
HPI - Dental/Oral General Chief complaint: Dental/Oral Stated complaint: toothache Time Seen by Provider: 03/20/25 05:06 History of Present Illness HPI Narrative: Patient is a 29-year-old male who presents to the emergency department this morning complaining of toothache. Patient states that his left upper tooth that is fractured and has been bothering him for a while. States that the pain is on and off but has been persistent for the past 3 days. Has not seen dentist in a long time. Denies any fevers or chills. No new symptoms or concerns at this time. Related Data Allergies Allergy/AdvReac Type Severity Reaction Status Date / Time No Known Allergies Allergy Verified 03/20/25 05:11 Review of Systems Review of Systems: All systems are reviewed and are negative unless stated otherwise in the HPI. [facility] Past Medical History Medical History Patient denies medical problems Surgical History Surgical History History of facial surgery Social History Social History Gender identity (if verbalized by the patient): Male Exam Narrative: General: Alert, awake, afebrile, in no acute distress. HEENT: PERRL, no rhinorrhea, no post nasal drip, oropharynx clear, fractured left upper molar, no dental abscess identified. Neck: Trachea midline, no JVD, no lymphadenopathy. Cardiovascular: Regular rate and rhythm, no murmurs, rubs or gallops, no peripheral edema. Respiratory: Clear to auscultation bilaterally, no tachypnea, no wheezing, no rhonchi, no rubs, no respiratory distress. Abdomen: Soft, nontender, nondistended, no rebound, no guarding, no peritoneal signs. Musculoskeletal: No joint swelling or deformity, normal muscle tone. Skin: No rashes or petechia, no signs of infection. Psychiatric: Alert and oriented, normal behavior and judgment for situation. Neurological: Alert and oriented to person, place, and time. Follows all commands. No focal deficits, speech is clear and fluent. Course Vital Signs Vital signs: Vital Signs Temperature 98.3 F 03/20/25 05:09 Pulse Rate 82 03/20/25 05:09 Respiratory Rate 16 03/20/25 05:09 Blood Pressure 148/88 H 03/20/25 05:09 Pulse Oximetry 99 03/20/25 05:09 Oxygen Delivery Room Air 03/20/25 05:09 Temperature 98.3 F 03/20/25 05:09 Pulse Rate 82 03/20/25 05:09 Respiratory Rate 16 03/20/25 05:09 Blood Pressure 148/88 H 03/20/25 05:09 Pulse Oximetry 99 03/20/25 05:09 Oxygen Delivery Room Air 03/20/25 05:09 MDM - Dental/Oral MDM Narrative Medical decision making narrative: The patient was evaluated by myself in the emergency department. History is obtained from patient who is an independent historian and physical exam was performed. External medical records were reviewed at this time. Patient was administered 15mg of IM Toradol and 1st dose of Augmentin in the emergency department. Differential diagnosis considerations include dental caries/abscess, fractured tooth. Comorbidities impacting this visit include poor dental hygiene. I have evaluated and discussed social determinants of health with the patient that could potentially impact subsequent diagnosis and treatment plans. On repeat assessment of the patient, reevaluation revealed that the patient is doing well and is in no acute distress. Patient symptoms have improved since he arrived to our emergency department. Repeat vital signs were all reviewed and noted to be stable. Differential diagnosis and treatment plan were discussed with the patient at bedside. Patient agrees with discussion and after shared medical decision making agrees with discharge. All questions were answered to the patient's satisfaction. Patient will follow up with a dentist in 3-5 days. Scripts for Augmentin and Homer were sent to patient's pharmacy to use as prescribed until he is seen by dentist. Patient was provided with strict return precautions and instructed to return to the emergency department if any new or worsening symptoms develop. The patient was discharged in stable condition. Discharge Plan Discharge Clinical Impression: Dental caries, Fracture of tooth Patient Disposition: Home Condition: Improved Instructions: Antibiotic Form, Toothache (ED) Additional Instructions: Please follow-up with a dentist within the next 3-5 days. Take the prescribed antibiotic as instructed. Use the prescribed pain medications as needed for pain if [id number] medications including ibuprofen/Tylenol are not alleviating her symptoms. Return to the ED if any new or worsening symptoms develop. Patient Language: Swedish Prescriptions: New hydrocodone-acetaminophen 5-325 mg tablet 1 tablet PO Q8H PRN (Reason: pain) Qty: 8 0RF amoxicillin-pot clavulanate 875-125 mg tablet 1 tablet PO Q12H 7 Days Qty: 14 0RF Follow-up/Referrals: PHYSICIAN,DEFLASH AND WASH OPERATOR [Primary Care Provider, Internal Medicine] Stand Alone Forms: Work/School Release IP Time of Disposition: 05:19
[2025-03-20] MEDS: KETOROLAC 15 MG/ML VIAL (*BKC) IM (05:24)
== END 2025-03-20 05:34 | disposition home or self-care (01) ==
PROVIDERS: Emergency Provider Emergency Medicine
DX: K08.89 Other specified disorders of teeth and supporting structures (principal); K02.9 Dental caries, unspecified; S02.5XXA Fracture of tooth (traumatic), initial encounter for closed fracture; X58.XXXA Exposure to other specified factors, initial encounter
CPT/HCPCS: 96372; 99283; A9270; J1885

== ENCOUNTER 2025-06-17 08:24 | Emergency (ER) | payer SELFPAY ==
--- NOTE | ~2025-06-17 | XR_ITS ---
XR finger 3rd RT min 2V, XR hand RT min 3V 06/17/2025 11:38 INDICATION: Right third finger swelling PROCEDURE: 3 views right third finger and 3 views right hand COMPARISON: No prior studies for comparison. FINDINGS: Fracture, dislocation or subluxation is not identified. There is moderate diffuse soft tissue swelling of the third finger. No foreign bodies are identified. IMPRESSION: 1: Moderate diffuse soft tissue swelling of the third finger. No underlying abnormality of the osseous structures. Reviewed, dictated and finalized at location O. [facility] IMPRESSION: 1: Moderate diffuse soft tissue swelling of the third finger. No underlying abn ormality of the osseous structures.
[2025-06-17 08:38] VITALS: BP 169/90; PULSE 100; RESP 16; TEMP 36.7; O2SAT 98
[2025-06-17] MEDS: HYDROcodone/acetaminophen (*CRX) 5-325 MG TABLET 1 TAB PO (11:22)
--- OUTSIDE RECORDS SUMMARY | 2025-06-17 11:24 | XMS_ITS | Clinical Summary ---
Author Organization [facility] Address [address] [place] [address] Care Team Providers Care Drafting Layout Worker Name Role Phone Unavailable Primary Care Provider [...] 10/31/2019 4:30 PM CDT Plan of Treatment Health Maintenance Due Date Last Done Comments Annual Visit Topic 1998 MMR Vaccines (1 of 1 - Stand jackie series) 1998 Varicella Vaccines (1 of 2 - 13+ 2-dose series) 2010 Hepatitis C Screening 2015 DTaP/Tdap/Td Vaccines (1 - Tdap) 2016 Hepatitis B Vaccines (1 of 3 - 19+ 3-dose series) 2016 HPV Vaccines (1 - 3-dose SCD M series) 2024 HIB Vaccines Aged Out No longer eligi ble based on patient's age to complete this topic Hepatitis A Vaccines Aged Out No long er eligible based on patient's age to complete this topic IPV Vaccines Aged Out No longer eligi ble based on patient's age to complete this topic Meningococcal Vaccine Aged Out No denise maynor eligible based on patient's age to complete this topic Pneumococcal Vaccine: Pediat rics (0 to 5 years) and At-Risk Patients (6 to 64 Years) Aged Out No longer eligible b ased on patient's age to complete this topic Advance Directives * Full Resuscitation (Latest Code Status on File) Date Activated Date Inactivated Comments 10/31/2019 6:04 PM 11/06/2019 5:41 PM
--- OUTSIDE RECORDS SUMMARY | 2025-06-17 11:24 | XMS_ITS | Clinical Summary ---
Author Organization [facility] Address [address] [place] [address] Care Team Providers Care Penology Professor Name Role Phone Unavailable Primary Care Provider Unavailabl e Source Comments [facility],non-owned Affiliates and Associated Physician Practices is amultiple site organization consisting of ambulatory clinics and hospital sitesin [place], [place], [place] and [place]. This disclosure is being madepursuant to the Care Everywhere program and may not contain all information available regarding this patient. Last updated 18.[facility] [employer] Allergies No known active allergies Medications * [...] of 3 - 19+ 3-dose series) 2016 DEPRESSION SCREENING 06/24/2024 HPV VACCINE (1 - 3-dose SCDM series) 2024 COVID-19 VACCINE (1 - 2024-2 6 season) 2025 INFLUENZA VACCINE (#1) 2025 04/22/2015 DTAP/TDAP/TD VACCINES (2 - T d or [...] this topic Medical Devices Implanted Type Area Physical Therapy Attendant Device Identifier Shelf Expiration Date Model / Serial / Lot Screw 1.55mm 2.65mm 4mm Slf Renu Aguilera Implanted:Qty: 11 on 10/21/2019 by Jose De Leon MD at [facility] Left: Face Synthes Maxillofacial .22 4.01 / / 1.5mm 2x2 Hole Plate Implanted:Qty: 1 on 10/21/2019 by Jose De Leon MD at [facility] Left: Mandible Synthes Maxillofacial .72 3 / / Screw 2mm 8mm Slf Drl Mndb Ss Nonster Implanted:Qty: 6 on 10/21/2019 by Jose De Leon MD at [facility] Left: Mandible Synthes Maxillofacial 201.928E / / Screw 1.55mm 2.65mm 5mm Slf Renu Aguilera Implanted:Qty: 4 on 10/21/2019 by Jose De Leon MD at [facility] Left: Face Synthes Maxillofacial .22 5.01 / / 30 Mm Rapid Resorb Orbital Floor Plate Implanted:Qty: 1 on 10/21/2019 by Jose De Leon MD at [facility] Left: Face Synthes Maxillofacial 851.690.0 1S / / Plate 12 Hl Mdfc .5mm Std Mini Implanted:Qty: 1 on 10/21/2019 by Jose De Leon MD at [facility] Left: Face Synthes Maxillofacial 04503.34 3 / / Plate 3x4 Hl Mdfc .8mm Std Lg L Ob L Implanted:Qty: 1 on 10/21/2019 by Jose De Leon MD at [facility] Left: Face Synthes Maxillofacial 04503.38 5 / / Screw 2mm 10mm Slf-Tap Lck Mndb Implanted:Qty: 2 on 10/21/2019 by Jose De Leon MD at [facility] Left: Mandible Synthes Maxillofacial 503.61 0.01 / / Screw 2mm 12mm Slf-Tap Lck Mndb Implanted:Qty: 2 on 10/21/2019 by Jose De Leon MD at [facility] Left: Mandible Synthes Maxillofacial 2.01 / / Screw 2mm 6mm Slf Drl Mndb Implanted:Qty: 4 on 10/21/2019 by Jose De Leon MD at [facility] Left: Mandible Synthes Usa 50 6.01 / / Plate 2x2 Hl Tnsnbnd Mlbl Mndb 1mm Mini Implanted:Qty: 1 on 10/21/2019 by Jose De Leon MD at [facility] Left: Mandible Synthes Maxillofacial 75 0 / / Insurance MEDICAID - [facility] MEDICAID - [place] MEDICAID - OUT OF [facility] MEDICAID - OUT OF STATE MEDICAID - OUT OF STATE MEDICAID - OUT OF [facility] MEDICAID - OUT OF STATE MEDICAID - OUT OF STATE MEDICAID - OUT OF STATE MEDICAID - OUT OF [facility] MEDICAID - OUT OF STATE MEDICAID [...]
--- OUTSIDE RECORDS SUMMARY | 2025-06-17 11:24 | XMS_ITS | Encounter Summary ---
Author Organization [facility] Address [address] [place] [address] Care Team Providers Care Clinical Nurse Occupational Medicine Name Role Phone Unavailable Primary Care Provider Unavailabl e Encounter Details Date Type Department Care Team (Late st Contact Info) Description 10/20/2019 Ophth Exam [facility] [address] [place] [address] Alexa Ragsdale MD [address] DEPT OF OPHTHALMOLOGY [place], [place] Social History Tobacco Use Types Packs/Day [...]
[2025-06-17 12:04] LABS: Hematocrit 43.4 % (42.0-52.0); Hemoglobin 14.5 g/dL (14.0-18.0); Immature Granulocyte Percent A 0.3 % (0-0.5); Lymphocytes Absolute Auto 2.01 K/mm3 (0.9-3.2); Mean Corpuscular HGB Conc 33.4 g/dl (32-36); Mean Corpuscular Hemoglobin 31.3 pg (26-34); Mean Corpuscular Volume 93.5 fl (80-100); Nucleated Red Blood Cells Absolute Auto 0.000 K/mm3 (0.0-0.012); Nucleated Red Blood Cells Perc 0.0 % (0.0-0.2); Platelet Count Result 267 k/mm3 (150-375); Red Blood Count 4.64 M/mm3 (4.6-6.20); White Blood Count 13.1 K/mm3 (4.5-10.0)
[2025-06-17 12:18] LABS: Anion Gap 10 mmol/L (4-12); Blood Urea Nitrogen 13 mg/dL (9-20); CRP 0.6 mg/dL (<1.0); Calcium 9.6 mg/dL (8.4-10.2); Carbon Dioxide 27 mmol/L (22-30); Chloride 103 mmol/L (98-107); Estimated CRCL calculation 179 ml/min; Estimated Glomerular Filt Rate > 60; Glucose 110 mg/dL (65-110); Potassium 4.4 mmol/L (3.4-5.0); Sodium 140 mmol/L (137-145)
--- NOTE | 2025-06-17 13:08 | ED.EXTPRO ---
HPI - Extremity Problem General Chief complaint: Extremity Problem,Nontraumatic Stated complaint: swelling to finger Time Seen by Provider: 06/17/25 10:49 History of Present Illness HPI Narrative: Patient is a 29-year-old male who presents to the ER with swelling to the right 3rd digit mainly the middle phalanx and extending to the medial aspect. Some warmth. No lymphangitic streaking. He has difficulty flexing at the DIP but can flex at the PIP and MCP. 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 No obvious injury to the hand or breakdown in skin. There is callus formation of the hands due to his work. Related Data Allergies Allergy/AdvReac Type Severity Reaction Status Date / Time No Known Allergies Allergy Verified 06/17/25 11:11 Review of Systems Constitutional: Constitutional: Reports no additional constitutional complaints Musculoskeletal: Musculoskeletal: Reports no additional musculoskeletal complaints Integumentary/Breasts: Skin/Breast: Reports system reviewed and no additional complaints, except as docu PMFSH Past Medical History Medical History Patient denies medical problems Surgical History Surgical History History of facial surgery Social History Social History Gender identity (if verbalized by the patient): Male Exam Narrative: GENERAL: Well-appearing, well-nourished, and in no acute distress. HEAD: Normocephalic, atraumatic. ENT: Mucous membranes moist. CHEST: Clear to auscultation. No respiratory distress. HEART: Regular rate and rhythm. Normal peripheral pulses. EXTREMITIES: Right 3rd digit with full extension. Flexion limited at the D IP but normal at the PIP and MCP. Swelling of the entire his finger with injury of discomfort over the palmar aspect moving into the medial aspect. Obvious fluctuance. No lymphangitic streaking. SKIN: Warm, dry, no rash. NEURO: Alert and oriented x3. PSYCH: Normal mood and affect. Course Course Emergency Course: Likely early cellulitis. Is not feel patient has flexor tenosynovitis. No pain in the hand forearm. Patient educated fully. Discharge home with oral antibiotics and pain control as well as a splint. Discussed need for return to ER or following up at a facility with a hand surgeon. Patient verbalized understanding. Vital Signs Vital signs: Vital Signs Temperature 98.0 F 06/17/25 08:38 Pulse Rate 100 06/17/25 08:38 Respiratory Rate 16 06/17/25 08:38 Blood Pressure 169/90 H 06/17/25 08:38 Pulse Oximetry 98 06/17/25 08:38 Oxygen Delivery Room Air 06/17/25 08:38 Temperature 98.0 F 06/17/25 08:38 Pulse Rate 82 06/17/25 13:31 Respiratory Rate 18 06/17/25 13:31 Blood Pressure 132/91 H 06/17/25 13:31 Pulse Oximetry 98 06/17/25 13:31 Oxygen Delivery Room Air 06/17/25 08:38 MDM Differential Diagnosis Differential Diagnosis: Flexor tenosynovitis, cellulitis, abscess, felon, fracture, ligamentous/tendon injury, gout Lab Data 06/17/25 11:58 06/17/25 11:58 Labs: Lab Results 06/17/25 Range/Units 11:58 WBC 13.1 H (4.5-10.0) K/mm3 RBC 4.64 (4.6-6.20) M/mm3 Hgb 14.5 (14.0-18.0) g/dL Hct 43.4 (42.0-52.0) % MCV 93.5 (80-100) fl MCH 31.3 (26-34) pg MCHC 33.4 (32-36) g/dl RDW 12.5 (11.5-14.5) % Plt Count 267 (150-375) k/mm3 MPV 8.4 (7.4-10.4) fl Immature Gran % (Auto) 0.3 (0-0.5) % Neut % (Auto) 74.9 H (45.5-73.1) % Lymph % (Auto) 15.3 L (18.3-44.2) % [place] % (Auto) 7.9 (2.6-8.5) % Eos % (Auto) 1.4 (0-4.4) % Baso % (Auto) 0.2 (0.2-1.2) % Lymph # (Auto) 2.01 (0.9-3.2) K/mm3 [place] # (Auto) 1.0 H (0.1-0.6) K/mm3 Eos # (Auto) 0.2 (0-0.3) K/mm3 Baso # (Auto) 0.0 (0.0-0.1) K/mm3 Abs Immat Gran (auto) 0.04 H (0.00-0.031) K/mm3 Absolute Neuts (auto) 9.8 H (1.3-6.7) K/mm3 Absolute Nucleated RBC 0.000 (0.0-0.012) K/mm3 Nucleated RBC % 0.0 (0.0-0.2) % ESR 12 (0-20) mm/hr Sodium 140 (137-145) mmol/L Potassium 4.4 (3.4-5.0) mmol/L Chloride 103 (98-107) mmol/L Carbon Dioxide 27 (22-30) mmol/L Anion Gap 10 (4-12) mmol/L BUN 13 D (9-20) mg/dL Creatinine 0.66 L (0.7-1.3) mg/dL Estim Creat Clear Calc 179 ml/min Estimated GFR > 60 (59 - ) Glucose 110 (65-110) mg/dL Calcium 9.6 (8.4-10.2) mg/dL C-Reactive Protein 0.6 (<1.0) mg/dL Imaging Data Radiologist's impression: ITS Impressions Finger X-Ray 06/17/25 11:41 IMPRESSION: 1: Moderate diffuse soft tissue swelling of the third finger. No underlying abnormality of the osseous structures. Hand X-Ray 06/17/25 11:41 IMPRESSION: 1: Moderate diffuse soft tissue swelling of the third finger. No underlying abnormality of the osseous structures. Discharge Plan Discharge Clinical Impression: Infected finger Patient Disposition: Home Condition: Stable Instructions: Antibiotic Form, Cellulitis (ED) Additional Instructions: Return ER if you have increased pain in her finger, you have red streaking up your arm, you have loss of range of motion, or you have additional concerns. Patient Language: Moroccan Prescriptions: New doxycycline hyclate 100 mg tablet 100 mg PO BID Qty: 20 0RF hydrocodone-acetaminophen 5-325 mg tablet 1 tablet PO Q6H PRN (Reason: pain) Qty: 14 0RF No Action hydrocodone-acetaminophen 5-325 mg tablet 1 tablet PO Q8H PRN (Reason: pain) Qty: 8 0RF amoxicillin-pot clavulanate 875-125 mg tablet 1 tablet PO Q12H 7 Days Qty: 14 0RF Follow-up/Referrals: Martínez Ontiveros MD [Physician, Family Practice] - 1 Week
[2025-06-17] MEDS: DOXYCYCLINE HYCLATE 100 MG TABLET PO (13:30)
[2025-06-17 13:31] VITALS: BP 132/91; PULSE 82; RESP 18; O2SAT 98
== END 2025-06-17 13:32 | disposition home or self-care (01) ==
PROVIDERS: Emergency Provider Emergency Medicine
DX: L08.9 Local infection of the skin and subcutaneous tissue, unspecified (principal)
CPT/HCPCS: 36415; 73130; 73140; 80048; 85025; 85652; 86140; 99283; A9270